=== PATIENT | male | born 1950 | race Caucasian/White ===

== ENCOUNTER 2018-06-19 10:53 | Day surgery (SDC) | payer OTHER ==
[2018-06-19] MEDS ORDERED: ceFAZolin 2 GM/DEXTROSE 100 ML IV ONE (11:57)
[2018-06-19] MEDS ORDERED: LIDOCAINE 1% 2 ML INJ ID PRN (12:28)
[2018-06-19] MEDS ORDERED: NS 1,000 ML IV ONE (12:28)
[2018-06-19] MEDS ORDERED: LR 1,000 ML IV ONE (12:30)
--- NOTE | 2018-06-19 12:35 | PDHPUP ---
History & Physical Update H&P update statement: This history and physical update is based on an assessment of the patient which was completed after admission or registration (within 24 hours), but prior to the surgery/procedure. H&P update: H&P reviewed & patient examined, no change in patient's condition since H&P completed
[2018-06-19] MEDS ORDERED: MIDAZOLAM 2 MG/2 ML VIAL IVP ONE (12:55)
--- NOTE | 2018-06-19 12:55 | PDANEPAE ---
ANE History of Present Illness hematuria for TURBT/cysto ANE Past Medical History - Cardiovascular History Hx Hypertension: Yes Hx Arrhythmias: No Hx Chest Pain: No Hx Coronary Artery / Peripheral Vascular Disease: No Hx CHF / Valvular Disease: No Hx Palpitations: No - Pulmonary History Hx COPD: No Hx Asthma/Reactive Airway Disease: No Hx Recent Upper Respiratory Infection: No Hx Oxygen in Use at Home: No Hx Sleep Apnea: No Sleep Apnea Screening Result - Last Documented: Positive - Neurologic History Hx Cerebrovascular Accident: No Hx Seizures: No Hx Dementia: No - Endocrine History Hx Diabetes: No Hypothyroid: No Hyperthyroid: No Obesity: no - Renal History Hx Renal Disorders: No Renal History Comment: kidney stones - Liver History Hx Hepatic Disorders: No - Neurological & Psychiatric Hx Hx Neurological and Psychiatric Disorders: No Neurological / Psychiatric History Comment: hx of depression - Cancer History Hx Cancer: No - Congenital Disorder History Hx Congenital Disorders: No - GI History Hx Gastrointestinal Disorders: No Gastrointestinal History Comment: several colonoscopies. polyps - Other Health History Other Health History: partial denture uppernone - Chronic Pain History Chronic Pain: No - Surgical History Prior Surgeries: bilat cataract sx. ANE Review of Systems Review of systems is: negative Review of Systems: - Exercise capacity METS (RN): 4 METS ANE Patient History - Allergies Allergies/Adverse Reactions: No Known Allergies Allergy (Verified 06/04/18 12:44) - Home Medications Home medications: home medication list seen and reviewed Home Medications: Atorvastatin Calcium 06/04/18 [Last Taken 03/19/18] Glucosamine Chondroitin Caplet 06/04/18 [Last Taken 03/19/18] Hydrochlorothiazide 06/04/18 [Last Taken 03/19/18] Multivitamin 06/04/18 [Last Taken 03/19/18] - NPO status NPO Since - Liquids (Date): 06/19/18 NPO Since - Liquids (Time): 08:30 NPO Since - Solids (Date): 06/18/18 NPO Since - Solids (Time): 19:30 - Anes Hx Anes Hx: no prior problems - Smoking Hx Smoking Status: Former smoker - Family Anes Hx Family Hx Anesthesia Complications: none ANE Labs/Vital Signs - Vital Signs Blood Pressure: 146/104 Heart Rate: 98 Respiratory Rate: 16 O2 Sat (%): 94 Height: 180.34 cm Weight: 90.718 kg ANE Physical Exam - Airway Neck exam: FROM Mallampati Score: Class 1 Mouth exam: normal dental/mouth exam - Pulmonary Pulmonary: no respiratory distress - Cardiovascular Cardiovascular: regular rate and rhythym - ASA Status ASA Status: II ANE Anesthesia Plan Anesthesia Plan: general endotracheal anesthesia
[2018-06-19] MEDS ORDERED: PROPOFOL 200 MG/20 ML VIAL ONE (13:00)
[2018-06-19] MEDS ORDERED: ROCURONIUM 50 MG/5 ML VIAL ONE (13:00)
[2018-06-19] MEDS ORDERED: LIDOCAINE 2% 2 ML INJ ONE ×2 (13:02)
[2018-06-19] MEDS ORDERED: SUGAMMADEX SODIUM 200 MG/2 ML VIAL IVP ONE (13:04)
[2018-06-19] MEDS ORDERED: DEXAMETHASONE 4 MG/ML VIAL ONE (13:08)
[2018-06-19] MEDS ORDERED: fentaNYL 100 MCG/2 ML INJ ONE ×2 (13:08)
[2018-06-19] MEDS ORDERED: IOPAMIDOL (ISOVUE-M 300) 15 ML VIAL ONE (13:17)
[2018-06-19] MEDS ORDERED: METOCLOPRAMIDE 10 MG/2 ML VIAL IVP PRN (13:41)
[2018-06-19] MEDS ORDERED: fentaNYL 100 MCG/2 ML INJ IVP PRN (13:41)
[2018-06-19] MEDS ORDERED: NALOXONE HCL 0.4 MG/ML INJ IVP PRN ×2 (13:41→15:54)
[2018-06-19] MEDS ORDERED: LR 500 ML IV PRN (13:41)
[2018-06-19] MEDS ORDERED: ONDANSETRON 4 MG/2 ML VIAL IVP PRN (13:41)
[2018-06-19] MEDS ORDERED: ALBUTEROL 3 ML DEYVIAL IH PRN (13:41)
[2018-06-19] MEDS ORDERED: oxyCODONE IR 5 MG TAB PO PRN (13:41)
[2018-06-19] MEDS ORDERED: HYDROmorphONE/DILAUDID 2 MG/ML INJ IVP PRN (13:41)
[2018-06-19] MEDS ORDERED: ACETAMINOPHEN 500 MG TAB PO PRN (13:41)
[2018-06-19] MEDS ORDERED: PROMETHAZINE HCL 25 MG/ML INJ IVP PRN (13:41)
--- NOTE | 2018-06-19 13:41 | POSTANESTH ---
Post Anesthetic Evaluation Cardiovascular Status: Normal, Stable Respiratory Status: Normal, Stable Level of Consciousness/Mental Status: Can Participate in Eval, Mildly Sleepy, Arousable Pain Control: Adequate, Prn Tx Ordered Nausea/Vomiting Control: Adequate, Prn Tx Ordered Complications Possibly Related to Anesthesia: None Noted
--- NOTE | 2018-06-19 14:34 | POSTOPPROG ---
Post Op Note Date of Operation: 06/19/18 Surgeon: Rafael Kendrick Anesthesia: GET(General Endotracheal) Pre-op Diagnosis: Bilateral renal pelvis masses, hematuria Post-op Diagnosis: same Indication: establish cause for hematuria Procedure: Cystoscopy, Bilateral retrograde pyelogram & ureteroscopy, left renal bx, Findings: Cola colored urine in left renal pelvis, brush bx obtained Inf/Abcess present in the surg proc area at time of surgery?: No EBL: Minimal Complications: none Drains: Other (bilateral ureteral stents 6 x 24 cm stents)
[2018-06-19] MEDS ORDERED: ACETAMINOPHEN 500 MG TAB ONE (15:26)
--- NOTE | 2018-06-19 15:29 | GOP ---
[f rep st] OPERATIVE REPORT DATE OF OPERATION: 06/19/2018 SURGEON: Rafael Kendrick MD ANESTHESIA: General. PREOPERATIVE DIAGNOSIS: Bilateral renal pelvic tumors. POSTOPERATIVE DIAGNOSIS: Bilateral renal pelvic tumors. PROCEDURE PERFORMED: A cystoscopy with bilateral retrograde pyelogram, bilateral ureteroscopy, left renal pelvic brush biopsy, bilateral ureteral stent. FINDINGS: INDICATIONS: This is a gentleman who presented with concerns for bilateral renal masses. DESCRIPTION OF PROCEDURE: Consent obtained. The patient was brought into the operating room. Once general anesthesia was under way, he was put in lithotomy position, prepped and draped in the normal sterile fashion. A 22-Khmer rigid scope was passed into the bladder under direct vision. The anter ior urethra and prostate appeared to be normal. The bladder showed no evidence of any abnormalities. There were no mucosal lesions. The right ureteral orifice was cannulated with a 0.035 Sensor wire. This was followed fluoroscopically up to the renal pelvis. A dual-lumen catheter was inserted and retrograde pyelogram was performed. This appeared to show a filling defect in the lower pole of the right kidney. Attempts were made to pass the dual lumen more proximally but it was met with great re sistance. A second wire was put into place and a rigid ureteroscope was passed in the ureter. There continued to be great pressure within the ureter, making it difficult to get beyond the proximal ure ter. Attempts were made with flexible ureteroscope as well and these were unable to be passed into t he renal pelvis. The decision was made to stop the ureteroscopy and a 6 x 24 stent was put over the guidewire. It was seen to coil fluoroscopically in the renal pelvis and cystoscopically in the bladd er. Attention was then directed to the left ureter. Once again, a 0.035 Sensor wire was passed into the ureter and followed up to the renal pelvis. Once this was placed, a cola-colored urine was seen eman ating from the left ureteral orifice. A dual-lumen catheter was once again used and retrograde pyelo gram showed a significant filling defect occupying most of the renal pelvis. A second wire was put i n place. A flexible ureteroscope once again was tried but could not be passed beyond the mid ureter. A rigid scope was then utilized and we were able to get up to the renal pelvis. Visualization was near impossible due to the cola-colored urine. Some of this urine was aspirated for cytology. A bru sh biopsy was then obtained to try to obtain some cellular material for further diagnostic abilities. Once this was accomplished, a 6-Khmer x 24 cm stent was passed over the guidewire. It was seen to coil fluoroscopically in the renal pelvis and cystoscopically n the bladder. Bladder drained. Yesi ent was transferred to the recovery room in good condition. /[id number]/MODL
[2018-06-19] MEDS ORDERED: oxyCODONE IR 5 MG TAB ONE (15:38)
[2018-06-19] MEDS ORDERED: LABETALOL HCL 20 MG/4 ML INJ IVP ONE ×2 (15:51→16:33)
[2018-06-19] MEDS: LABETALOL HCL 20 MG/4 ML INJ IVP PRN ×3 (15:52→16:20)
[2018-06-19] MEDS ORDERED: ENALAPRILAT DIHYDRATE 1.25 MG/ML VIAL IVP PRN (15:54)
[2018-06-19] MEDS ORDERED: LABETALOL HCL 5 MG/ML 20 ML MDV IVP PRN (15:54)
[2018-06-19] MEDS ORDERED: ENALAPRILAT DIHYDRATE 1.25 MG/ML VIAL ONE (16:42)
[2018-06-19 19:29] VITALS: BP 127/65
== END 2018-06-19 18:30 | disposition home or self-care (01) ==
LOC: FSGY 10:53
PROVIDERS: ATTEND Urology
DX: C64.2 Malignant neoplasm of left kidney, except renal pelvis (principal); R31.9 Hematuria, unspecified
CPT/HCPCS: 52332; 52354; C1769; C2625; J0690; J1100; J2250; J2704; J3010; Q9967